=== PATIENT | female | born 1965 | race Caucasian/White ===

== ENCOUNTER 2016-07-23 14:09 | Emergency (ER) | payer OTHER ==
--- NOTE | 2016-07-23 14:26 | ED NURSING NOTES ---
Clinical Report - Nurses [facility] [place] [address] 07/23/2016 14:12 [id number] Triage time 14:19 Jul 23 2016. Acuity: LEVEL 3. Chief Complaint: INJURY TO HEAD. SEPSIS SCREEN: Sepsis Screen. Negative (no infection suspected/documented). HELEN COMA SCORE: [place] Coma Scale: 15- eyes open spontaneously (4); best verbal response- oriented x 4 (5); best motor response- obeys commands (6). --14:25 Cary Silva R.N. 14:19 07/23/16. BP: 154/86 (large adult cuff) taken on the left arm, while sitting. HR: 78. RR: 18 (regular). O2 saturation: 97% on room air. Temp: 97.8 F (oral). Pain level now: 5/10. --14:25 Cary Silva R.N. Weight: 129.7 kg stated. Height/Length: 65 inches Per Patient. BMI: 47.6. --14:24 Cary Silva R.N. Medications High blood pressure medication. --14:21 Cary Silva R.N. Allergies No Known Drug Allergy. --14:20 Cary Silva R.N. History Arrived by private vehicle. Historian: patient. Accompanied by family. This occurred just prior to arrival. Mechanism of injury: a single blow. She has had a headache. No loss of consciousness. No neck pain. 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 PAST MEDICAL HX: Hypertension. Tetanus status: up-to-date. SOCIAL HX: Smoker- current status unknown. No alcohol use or drug use. No infectious disease exposure. ABUSE ASSESSMENT: No report of abuse. --14:25 Cary Silva R.N. PROBLEMS: Hypertension. --14:22 Cary Silva R.N. ADDITIONAL SURGERIES: Adenoidectomy. Carpal Tunnel Surgery. Csection. Tonsillectomy. [place] teech. --14:22 Cary Silva R.N. Interventions ID band on patient. To treatment room. --14:25 Cary Silva R.N. PHYSICAL ASSESSMENT Ambulatory to room. GENERAL / NEURO / PSYCH: Alert. Oriented X 4. Appears in no acute distress. HEENT: Right parietal area: tenderness and swelling. ( Patient tender to touch in area, she will continue to use ice. Skin intact). Pupils equal, round and reactive to light. EOM intact. Ear within normal limits. Voice within normal limits. No nasal injury noted. Mucous membranes are pink. RESPIRATORY: Respirations not labored. CVS: Capillary refill less than 2 seconds. BACK: No neck or back tenderness. ROM normal to the neck and back. SKIN: Skin is warm. --14:26 Cary Silva R.N. NURSING PROGRESS NOTES The plan of care for this patient has been created. Cold pack applied. Head of bed elevated. Reassurance given. Two patient identifiers checked. Call light placed in reach. Side rails up x 1. Bed placed in lowest position. Brakes of bed on. Patient ready for evaluation- chart flagged and ED physician notified. --14:27 Cary Silva R.N. DISPOSITION / DISCHARGE Departure time: 14:30 Jul 23 2016. Condition at departure: unchanged. No learning barriers present. Discharge instructions provided and reviewed with the patient. Reviewed wound care instructions (ice). Patient verbalized understanding. Written instructions provided in Turkmen. The patient was discharged by the nurse practitioner. She was discharged home and accompanied by spouse. She left the Emergency Department ambulatory and via private vehicle. Spouse driving. ( Patient has no further questions). --14:33 Cary Silva R.N. Locked/Released at 07/23/2016 14:34 by Cary Silva R.N.
--- NOTE | 2016-07-23 14:26 | ED NURSING NOTES ---
Clinical Report - Nurses [facility] [place] [address] 07/23/2016 14:12 [id number] TRI[facility] Triage time 14:19 Jul 23 2016. Acuity: LEVEL 3. Chief Complaint: INJURY TO HEAD. SEPSIS SCREEN: Sepsis Screen. Negative (no infection suspected/documented). HELEN COMA SCORE: [place] Coma Scale: 15- eyes open spontaneously (4); best verbal response- oriented x 4 (5); best motor response- obeys commands (6). --14:25 Cary Silva R.N. 14:19 07/23/16. BP: 154/86 (large adult cuff) taken on the left arm, while sitting. HR: 78. RR: 18 (regular). O2 saturation: 97% on room air. Temp: 97.8 F (oral). Pain level now: 5/10. --14:25 Cary Silva R.N. Weight: 129.7 kg stated. Height/Length: 65 inches Per Patient. BMI: 47.6. --14:24 Cary Silva R.N. Medications High blood pressure medication. --14:21 Cary Silva R.N. Allergies No Known Drug Allergy. --14:20 Cary Silva R.N. History Arrived by private vehicle. Historian: patient. Accompanied by family. This occurred just prior to arrival. Mechanism of injury: a single blow. She has had a headache. No loss of consciousness. No neck pain. 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 PAST MEDICAL HX: Hypertension. Tetanus status: up-to-date. SOCIAL HX: Smoker- current status unknown. No alcohol use or drug use. No infectious disease exposure. ABUSE ASSESSMENT: No report of abuse. --14:25 Cary Silva R.N. PROBLEMS: Hypertension. --14:22 Cary Silva R.N. ADDITIONAL SURGERIES: Adenoidectomy. Carpal Tunnel Surgery. Csection. Tonsillectomy. [place] teech. --14:22 Cary Silva R.N. Interventions ID band on patient. To treatment room. --14:25 Cary Silva R.N. PHYSICAL ASSESSMENT Ambulatory to room. GENERAL / NEURO / PSYCH: Alert. Oriented X 4. Appears in no acute distress. HEENT: Right parietal area: tenderness and swelling. ( Patient tender to touch in area, she will continue to use ice. Skin intact). Pupils equal, round and reactive to light. EOM intact. Ear within normal limits. Voice within normal limits. No nasal injury noted. Mucous membranes are pink. RESPIRATORY: Respirations not labored. CVS: Capillary refill less than 2 seconds. BACK: No neck or back tenderness. ROM normal to the neck and back. SKIN: Skin is warm. --14:26 Cary Silva R.N. NURSING PROGRESS NOTES The plan of care for this patient has been created. Cold pack applied. Head of bed elevated. Reassurance given. Two patient identifiers checked. Call light placed in reach. Side rails up x 1. Bed placed in lowest position. Brakes of bed on. Patient ready for evaluation- chart flagged and ED physician notified. --14:27 Cary Silva R.N. DISPOSITION / DISCHARGE Departure time: 14:30 Jul 23 2016. Condition at departure: unchanged. No learning barriers present. Discharge instructions provided and reviewed with the patient. Reviewed wound care instructions (ice). Patient verbalized understanding. Written instructions provided in Faroese. The patient was discharged by the nurse practitioner. She was discharged home and accompanied by spouse. She left the Emergency Department ambulatory and via private vehicle. Spouse driving. ( Patient has no further questions). --14:33 Cary Silva R.N. Locked/Released at 07/23/2016 14:34 by Cary Silva R.N.
--- NOTE | 2016-07-23 14:26 | ED CLINICAL REPORT ---
Clinical Report - Physicians/Mid Levels [facility] [address] [place] [address] 07/23/2016 14:12 Patient: MICHELLE ROMERO Time Seen: 1418; upon arrival, initial patient contact, initial documentation, patient care assumed. Arrived- By private vehicle. Historian- patient and spouse. HISTORY OF PRESENT ILLNESS Chief Complaint: INJURY TO HEAD. Location of injuries- head. The injury occurred just prior to arrival. Occurred at home. The patient sustained multiple light blows (some glass food edison jars fell off shelf and hit me in the head). The patient complains of mild pain. The patient sustained a blow to the head. No neck pain, loss of consciousness or seizure. Not dazed. swelling and pain better now after ice and motrin 600mg. REVIEW OF SYSTEMS No numbness, loss of vision, weakness, difficulty breathing or laceration. All systems otherwise negative, except as recorded above. PAST HISTORY See nurses notes. PROBLEMS: Hypertension. --14:22 Cary Silva R.N. ADDITIONAL SURGERIES: Adenoidectomy. Carpal Tunnel Surgery. Csection. Tonsillectomy. Ben syed. --14:22 Cary Silva R.N. SOCIAL HISTORY Unknown if ever smoked. No alcohol use or drug use. No recent travel. Is a local resident. She lives with spouse. FAMILY HISTORY No significant family medical history. ADDITIONAL NOTES The nursing notes have been reviewed with agreement regarding the chief complaint, HPI, ROS, PMH and patient medications and allergies. PHYSICAL EXAM Vital Signs: 07/23/2016 14:19 BP: 154/86. HR: 78. RR: 18. O2 saturation: 97%. Temp: 97.8 F. Pain level now: 510. Have been reviewed as normal and appear to be correct. Appearance: Alert. No acute distress. Head: Head tender. Swelling of head present. Right parietal area: mild tenderness and swelling of the upper anterior aspect of the right parietal area (very mild swelling, barely noticeable). No erythema, laceration, abrasion, ecchymosis or puncture wound. No foreign body or deformity. Eyes: Pupils equal, round and reactive to light. EOM intact. ENT: No dental injury. Pharynx normal. Neck: Painless ROM. Non-tender. Back: No tenderness. ROM normal. Skin: Skin intact. Skin warm and dry. Normal skin color. Normal skin turgor. Extremities: Normal inspection. Pelvis stable. Extremities atraumatic. No lower extremity edema. Neuro: Oriented X 3. Mood/affect normal. Speech normal. No motor deficit. Normal gait. No sensory deficit. PROGRESS AND PROCEDURES Patient and spouse counseled in person regarding the patient's stable condition and diagnosis. Differential Diagnosis: Other possible considerations: icb, sah, subdural hematoma, concussion, skull fx, contusion, lac. Above considerations are based on history and physical exam. Differential diagnosis was discussed with patient and patient's spouse. Disposition: Discharged home in good and unchanged condition (14:26). Condition: good and stable. CLINICAL IMPRESSION Single contusion to the scalp.No hematoma or skin abrasion. INSTRUCTIONS Apply ice for 20 minutes four times a day for one days until better. Don't apply ice directly to skin. Warnings: HEAD INJURY PRECAUTIONS: An observer must check on the patient frequently for the next 24 hours to confirm that the patient responds as expected, is not confused, has no new weakness or numbness, and has no other problems. GENERAL WARNINGS: Return or contact your physician immediately if your condition worsens or changes unexpectedly, if not improving as expected, or if other problems arise. Specifically return if problem worsens. Follow-up: Follow up with your doctor in about two days as needed. Call for an appointment. Summary of care provided to patient. Understanding of the discharge instructions verbalized by patient. (Electronically signed by Tara Reyes A.R.N.P. 07/23/2016 15:26)
--- NOTE | 2016-07-23 15:27 | ED MAR SUMMARY ---
..... Medication Administration Record [facility] [address] [place], [place] [id number] Patient: MICHELLE ROMERO Visit ID: [id number] 51y, F Weight: 129.7 kg Height/Length: 65 in BMI: 47.6 ALLERGIES: No Known Drug Allergy
--- NOTE | 2016-07-23 15:27 | ED DISCHARGE INSTRUCTIONS ---
Patient: MICHELLE ROMERO General Instructions [facility] VisitID: [id number] [place] [address] 51y, F Registration Date/Time: 07/23/2016 Single contusion to the scalp.No hematoma or skin abrasion. INSTRUCTIONS Apply ice for 20 minutes four times a day for one days until better. Don't apply ice directly to skin. Warnings: HEAD INJURY PRECAUTIONS: An observer must check on the patient frequently for the next 24 hours to confirm that the patient responds as expected, is not confused, has no new weakness or numbness, and has no other problems. GENERAL WARNINGS: Return or contact your physician immediately if your condition worsens or changes unexpectedly, if not improving as expected, or if other problems arise. Specifically return if problem worsens. Follow-up: Follow up with your doctor in about two days as needed. Call for an appointment. Summary of care provided to patient. Understanding of the discharge instructions verbalized by patient. ADDITIONAL INFORMATION Scalp Contusion [No Wake-Up] A scalp contusion is a bruise with swelling and sometimes bleeding under the skin. The swelling should start to go down within two days. Although there is no sign of a serious injury at this time, symptoms may appear later. These could be a sign of a more serious problem (bruising or bleeding in the brain). Therefore, watch for the warning signs below. Home Care: During the next 24 hours someone must stay with you to check for the signs below. It is not necessary to stay awake or be awakened during the night. If you have swelling of the face or scalp, apply an ice pack (ice cubes in a plastic bag, wrapped in a towel) for 20 minutes. Do this every 1-2 hours until the swelling starts to go down. You may use acetaminophen (Tylenol) or ibuprofen (Motrin, Advil) to control pain, unless another pain medicine was prescribed. [ NOTE : If you have chronic liver or kidney disease or ever had a stomach ulcer or GI bleeding, talk with your doctor before using these medicines.] For the next 24 hours: Do not take alcohol, sedatives or medicines that make you sleepy. Do not drive or operate machinery. Avoid strenuous activities. No lifting or straining. If you have had any symptoms of a concussion today (nausea, vomiting, dizziness, confusion, headache, memory loss or if you were knocked out), do not return to sports or any activity that could result in another head injury until all symptoms are gone and you have been cleared by your doctor. A second head injury before fully recovering from the first one can lead to serious brain injury. Follow Up with your doctor if symptoms are not improving after 24 hours, or as directed. [NOTE: Any X-rays or CT scans taken will be reviewed by a radiologist. You will be notified of any new findings that may affect your care.] Get Prompt Medical Attention if any of the following occur: Repeated vomiting Severe or worsening headache or dizziness Unusual drowsiness, or unable to awaken as usual Confusion or change in behavior or speech, memory loss, blurred vision Convulsion (seizure) Increasing scalp or face swelling Redness, warmth or pus from the swollen area Fluid drainage or bleeding from the nose or ears Fever of 100.4F(38C) or higher, or as directed by your healthcare provider Head Injury, No Wake-Up (Adult) You have had a head injury. It does not appear serious at this time. Symptoms of a more serious problem (concussion, bruising, or bleeding in the brain) may appear later. Therefore, watch for the WARNING SIGNS listed below. Home Care: Your healthcare provider will tell you whether its okay to drive. If so, you can drive yourself home. For the next day or so, be careful when driving or using heavy machinery until you are sure you have no delayed symptoms. During the next 24 hours someone must stay with you to check for the signs below. It is not necessary to stay awake or be awakened during the night. If you have swelling of the face or scalp, apply an ice pack (ice cubes in a plastic bag, wrapped in a towel) for 20 minutes. Do this every 1-2 hours until the swelling starts to go down. Do not use aspirin or ibuprofen (Motrin, Advil) after a head injury.You may use acetaminophen (Tylenol)to control pain, unless another pain medicine was prescribed. [NOTE: If you have chronic liver or kidney disease or ever had a stomach ulcer or GI bleeding, talk with your doctor before using these medicines.] For the next 24 hours: Do not take alcohol, sedatives or medicines that make you sleepy. Avoid strenuous activities. No lifting or straining. If you have had any symptoms of a concussion today (nausea, vomiting, dizziness, confusion, headache, memory loss or if you were knocked out), do not return to sports or any activity that could result in another head injury until all symptoms are gone and you have been cleared by your doctor. A second head injury before fully recovering from the first one can lead to serious brain injury. Follow Up with your doctor if symptoms are not improving after 24 hours, or as directed. [NOTE: A radiologist will review any X-rays or CT scans that were taken. We will notify you of any new findings that may affect your care.] Get Prompt Medical Attention if any of the followingWARNING SIGNS occur: Repeated vomiting Severe or worsening headache or dizziness Unusual drowsiness, or unable to awaken as usual Confusion or change in behavior or speech, memory loss, blurred vision Convulsion (seizure) Increasing scalp or face swelling Redness, warmth or pus from the swollen area Fluid drainage or bleeding from the nose or ears You have been given the following additional information: Scalp Contusion, No Wake Up HEAD INJURY, No Wake-Up (Adult) (Electronically signed by Tara Reyes A.R.N.P. 07/23/2016 15:26)
--- NOTE | 2016-07-23 15:27 | ED MED RECONCILIATION SUMMARY ---
Patient: MICHELLE ROMERO Medication Reconciliation Report [facility] VisitID: [id number] [address] [place] [place] [address] 51y, F Registration Date/Time: 07/23/2016 Weight: 129.7 kg Height/Length: 65 in. BMI: 47.6 ALLERGIES: No Known Drug Allergy The patient's Home Medications are listed below: THE FOLLOWING MEDICATIONS NEED TO BE RECONCILED: High blood pressure medication The source(s) of the original Home Medication information: Not obtained. The following Medications were given to the patient in the Emergency Department: None. The following Medications were prescribed to the patient: None.
--- NOTE | 2016-07-23 15:27 | ED MAR SUMMARY ---
..... Medication Administration Record [facility] [address] [place], [place] [id number] Patient: MICHELLE ROMERO Visit ID: [id number] 51y, F Weight: 129.7 kg Height/Length: 65 in BMI: 47.6 ALLERGIES: No Known Drug Allergy
--- NOTE | 2016-07-23 15:27 | ED MED RECONCILIATION SUMMARY ---
Patient: MICHELLE ROMERO Medication Reconciliation Report [facility] VisitID: [id number] [address] [place] [address] 51y, F Registration Date/Time: 07/23/2016 Weight: 129.7 kg Height/Length: 65 in. BMI: 47.6 ALLERGIES: No Known Drug Allergy The patient's Home Medications are listed below: THE FOLLOWING MEDICATIONS NEED TO BE RECONCILED: High blood pressure medication The source(s) of the original Home Medication information: Not obtained. The following Medications were given to the patient in the Emergency Department: None. The following Medications were prescribed to the patient: None.
== END 2016-07-23 14:30 | disposition home or self-care (01) ==
LOC: ED SRH 14:09
DX: S00.03XA Contusion of scalp, initial encounter (principal); W20.8XXA Other cause of strike by thrown, projected or falling object, initial encounter; Y92.009 Unspecified place in unspecified non-institutional (private) residence as the place of occurrence of the external cause; Y99.8 Other external cause status; I10 Essential (primary) hypertension; Z79.899 Other long term (current) drug therapy

== ENCOUNTER 2016-08-28 00:26 | Emergency (ER) | payer OTHER ==
--- NOTE | 2016-08-28 02:04 | ED NURSING NOTES ---
Clinical Report - Nurses [facility] [address] [place] [place] [address] 08/28/2016 0:27 Patient: MICHELLE ROMERO TRIAGE Triage time 00:36 Aug 28 2016. Chief Complaint: (Ingrown toenail). SEPSIS SCREEN: Sepsis Screen: negative. Negative (no infection suspected/documented). HELEN COMA SCORE: [place] Coma Scale: 15- eyes open spontaneously (4); best verbal response- oriented x 4 (5); best motor response- obeys commands (6). --00:40 Becky Bravo 00:36 08/28/16. BP: 164/73. HR: 70. RR: 18. O2 saturation: 99% on room air. Temp: 97.4 F (oral). Pain level now: 12/28. --00:40 Becky Bravo. Weight: 136 kg stated. Height/Length: 65 inches Per Patient. BMI: 50. --00:38 Becky Bravo. Medications None. --00:37 Becky Bravo. Allergies Codeine. --00:39 Becky Bravo Sulfites. --00:39 Becky Bravo. Medication/allergy information source: the patient. --00:40 Becky Bravo. History Arrived by private vehicle. Historian: patient. Accompanied by family. Primary physician ([facility] silas melton). This started just prior to arrival. ( Patient reports she noticed redness and pain on her right big toe. Patient reports that it has gotten worse in two hours.). 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 PAST MEDICAL HX: Immunizations: up-to-date. Last normal menstrual period- August 14. SOCIAL HX: Never smoker. No alcohol use or drug use. ABUSE ASSESSMENT: No report of abuse. FALL RISK ASSESSMENT: Fall risk assessment completed. No fall risk identified. NUTRITIONAL RISK ASSESSMENT: The nutritional risk assessment revealed no deficiencies. FUNCTIONAL ASSESSMENT: Functional assessment: no impairments noted. LEARNING NEEDS ASSESSMENT: The learning needs assessment revealed no barriers. SKIN INTEGRITY ASSESSMENT: Skin integrity risk assessment completed. No skin integrity risk identified. --00:40 Becky Bravo. PROBLEMS: Contusion. Hypertension. --00:40 Becky Bravo. ADDITIONAL SURGERIES: Adenoidectomy. Carpal Tunnel Surgery. Csection. Tonsillectomy. [place] teech. --00:40 Becky Bravo. Interventions ID band on patient. To treatment room. --00:40 Becky Bravo. PHYSICAL ASSESSMENT GENERAL / NEURO / PSYCH: Alert. Oriented X 4. Appears in no acute distress. HEENT: Pupils equal, round and reactive to light. No facial asymmetry noted. Mucous membranes are pink. RESPIRATORY: Respirations not labored. CVS: Normal sinus rhythm noted. GI / : Abdomen soft and nontender. EXTREMITIES: ( Right big toe red, warm to touch and moderately swollen). SKIN: Skin is warm and dry. --00:41 Becky Bravo. NURSING PROGRESS NOTES Warming measures: blanket applied. Reassurance given to the patient. Two patient identifiers checked. Call light placed in reach. Side rails up x 1. Bed placed in lowest position. Brakes of bed on. Patient ready for evaluation- chart flagged and ED physician notified. --00:41 Becky Bravo 01:35 08/28/16. ( Provider at bedside, toe nail cut back with use of lidocaine. Patient tolerated well.). --02:05 Becky Bravo. DISPOSITION / DISCHARGE Condition at departure: stable. The goals identified in the patient's plan of care were met. FALL RISK ASSESSMENT: Fall risk assessment completed. No fall risk identified. --02:03 Becky Bravo 02:03 08/28/16. BP: deferred. HR: 66. RR: 20. O2 saturation: 97% on room air. Temp: 97.9 F (oral). Pain level now: 10. Additional comments: Patient refused BP , states it hurts too bad . --02:03 Becky Bravo 02:10 08/28/16. No learning barriers present. Discharge instructions provided and reviewed with the patient and family. Reviewed warnings (Do not drive while taking sedative medications). Reviewed medication(s) side effects, precautions, dosing and course information. Prescription(s) given to the patient. Reviewed referral to a marker assembler. Patient verbalized understanding. Written instructions provided in Nepali. ( Follow up with Podiatry. Keep affected toenail clean and dry. Epsom salt and warm water soaks may be helpful. Elevate affected extremity. Avoid tight fitting shoes. Patient verbalized understanding and had no additional questions at this time.). The patient was discharged by the physician. She was discharged home and accompanied by family. She left the Emergency Department ambulatory and via private vehicle. Family member driving. --02:29 Becky Bravo. Locked/Released at 08/28/2016 2:30 by Becky Bravo,
--- NOTE | 2016-08-28 02:04 | ED CLINICAL REPORT ---
Clinical Report - Physicians/Mid Levels [facility] [address] [place] [address] 08/28/2016 0:27 Patient: MICHELLE ROMERO *This is a preliminary document and is subject to change Time Seen: 00:35; initial patient contact. PROGRESS AND PROCEDURES Digital Nerve Block- Toe: Time: 02:03. Per protocol, time-out completed immediately before the procedure. Digital nerve block performed on the right great toe. Dorsal approach utilized. Landmarks identified. Skin prepped. Total volume of 2 mL 2% Lidocaine infiltrated via two punctures using a 27-gauge needle. Patient cooperative during procedure. No complications encountered. Excellent anesthesia achieved. CLINICAL IMPRESSION Paronychia right great toe. Ingrown toenail right great toe. INSTRUCTIONS Prescription Medications: Hydrocodone/APAP 5mg / 325mg: take 1 orally every 6 hours as needed for pain. Dispense fifteen (15). No refill. Augmentin 875 mg: take 1 tablet orally every 12 hours for 7 days. No refill. Substitution is permissible. Follow-up with: Elias Francois DPM, Podiatry, , [address], [place], [address] Follow up in about two days. Call for an appointment. [address]
--- NOTE | 2016-08-28 02:04 | ED NURSING NOTES ---
Clinical Report - Nurses [facility] [place] [address] 08/28/2016 0:27 Patient: MICHELLE ROMERO TRIAGE Triage time 00:36 Aug 28 2016. Chief Complaint: (Ingrown toenail). SEPSIS SCREEN: Sepsis Screen: negative. Negative (no infection suspected/documented). HELEN COMA SCORE: Hachita Coma Scale: 15- eyes open spontaneously (4); best verbal response- oriented x 4 (5); best motor response- obeys commands (6). --00:40 Becky Bravo 00:36 08/28/16. BP: 164/73. HR: 70. RR: 18. O2 saturation: 99% on room air. Temp: 97.4 F (oral). Pain level now: 12/28. --00:40 Becky Bravo. Weight: 136 kg stated. Height/Length: 65 inches Per Patient. BMI: 50. --00:38 Becky Bravo. Medications None. --00:37 Becky Bravo. Allergies Codeine. --00:39 Becky Bravo Sulfites. --00:39 Becky Bravo. Medication/allergy information source: the patient. --00:40 Becky Bravo. History Arrived by private vehicle. Historian: patient. Accompanied by family. Primary physician ([facility] silas melton). This started just prior to arrival. ( Patient reports she noticed redness and pain on her right big toe. Patient reports that it has gotten worse in two hours.). Treatment TOWEL SEWER: None. PAST MEDICAL HX: Immunizations: up-to-date. Last normal menstrual period- August 14. SOCIAL HX: Never smoker. No alcohol use or drug use. ABUSE ASSESSMENT: No report of abuse. FALL RISK ASSESSMENT: Fall risk assessment completed. No fall risk identified. NUTRITIONAL RISK ASSESSMENT: The nutritional risk assessment revealed no deficiencies. FUNCTIONAL ASSESSMENT: Functional assessment: no impairments noted. LEARNING NEEDS ASSESSMENT: The learning needs assessment revealed no barriers. SKIN INTEGRITY ASSESSMENT: Skin integrity risk assessment completed. No skin integrity risk identified. --00:40 Becky Bravo. PROBLEMS: Contusion. Hypertension. --00:40 Becky Bravo. ADDITIONAL SURGERIES: Adenoidectomy. Carpal Tunnel Surgery. Csection. Tonsillectomy. Stanley teech. --00:40 Becky Bravo. Interventions ID band on patient. To treatment room. --00:40 Becky Bravo. PHYSICAL ASSESSMENT GENERAL / NEURO / PSYCH: Alert. Oriented X 4. Appears in no acute distress. HEENT: Pupils equal, round and reactive to light. No facial asymmetry noted. Mucous membranes are pink. RESPIRATORY: Respirations not labored. CVS: Normal sinus rhythm noted. GI / : Abdomen soft and nontender. EXTREMITIES: ( Right big toe red, warm to touch and moderately swollen). SKIN: Skin is warm and dry. --00:41 Becky Bravo. NURSING PROGRESS NOTES Warming measures: blanket applied. Reassurance given to the patient. Two patient identifiers checked. Call light placed in reach. Side rails up x 1. Bed placed in lowest position. Brakes of bed on. Patient ready for evaluation- chart flagged and ED physician notified. --00:41 Becky Bravo 01:35 08/28/16. ( Provider at bedside, toe nail cut back with use of lidocaine. Patient tolerated well.). --02:05 Becky Bravo. DISPOSITION / DISCHARGE Condition at departure: stable. The goals identified in the patient's plan of care were met. FALL RISK ASSESSMENT: Fall risk assessment completed. No fall risk identified. --02:03 Becky Bravo 02:03 08/28/16. BP: deferred. HR: 66. RR: 20. O2 saturation: 97% on room air. Temp: 97.9 F (oral). Pain level now: 10. Additional comments: Patient refused BP , states it hurts too bad . --02:03 Becky Bravo 02:10 08/28/16. No learning barriers present. Discharge instructions provided and reviewed with the patient and family. Reviewed warnings (Do not drive while taking sedative medications). Reviewed medication(s) side effects, precautions, dosing and course information. Prescription(s) given to the patient. Reviewed referral to a layout artist. Patient verbalized understanding. Written instructions provided in French. ( Follow up with Podiatry. Keep affected toenail clean and dry. Epsom salt and warm water soaks may be helpful. Elevate affected extremity. Avoid tight fitting shoes. Patient verbalized understanding and had no additional questions at this time.). The patient was discharged by the physician. She was discharged home and accompanied by family. She left the Emergency Department ambulatory and via private vehicle. Family member driving. --02:29 Becky Bravo. Locked/Released at 08/28/2016 2:30 by Becky Bravo,
--- NOTE | 2016-08-28 02:04 | ED CLINICAL REPORT ---
Clinical Report - Physicians/Mid Levels [facility] [address] [place] [address] 08/28/2016 0:27 Patient: MICHELLE ROMERO *This is a preliminary document and is subject to change Time Seen: 00:35; initial patient contact. PROGRESS AND PROCEDURES Digital Nerve Block- Toe: Time: 02:03. Per protocol, time-out completed immediately before the procedure. Digital nerve block performed on the right great toe. Dorsal approach utilized. Landmarks identified. Skin prepped. Total volume of 2 mL 2% Lidocaine infiltrated via two punctures using a 27-gauge needle. Patient cooperative during procedure. No complications encountered. Excellent anesthesia achieved. CLINICAL IMPRESSION Paronychia right great toe. Ingrown toenail right great toe. INSTRUCTIONS Prescription Medications: Hydrocodone/APAP 5mg / 325mg: take 1 orally every 6 hours as needed for pain. Dispense fifteen (15). No refill. Augmentin 875 mg: take 1 tablet orally every 12 hours for 7 days. No refill. Substitution is permissible. Follow-up with: Elias Francois DPM, Podiatry, , [address], [place], [address] Follow up in about two days. Call for an appointment. [address].
--- NOTE | 2016-08-28 09:06 | ED MAR SUMMARY ---
..... Medication Administration Record [facility] [address] [place], [place] [id number] Patient: MICHELLE ROMERO Visit ID: [id number] 51y, F Weight: 136.0 kg Height/Length: 65 in BMI: 50 ALLERGIES: Sulfites, Codeine
--- NOTE | 2016-08-28 09:06 | ED DISCHARGE INSTRUCTIONS ---
Patient: MICHELLE ROMERO General Instructions [facility] VisitID: [id number] [address] [place] [address] 51y, F Registration Date/Time: 08/28/2016 Paronychia right great toe. Ingrown toenail right great toe. INSTRUCTIONS Prescription Medications: Hydrocodone/APAP 5mg / 325mg: take 1 orally every 6 hours as needed for pain. Dispense fifteen (15). No refill. Augmentin 875 mg: take 1 tablet orally every 12 hours for 7 days. No refill. Substitution is permissible. Follow-up with: Elias Francois DPM, Podiatry, , [address], [place], [address] Follow up in about two days. Call for an appointment. ADDITIONAL INFORMATION Paronychia, Finger Or Toe Paronychia is an infection alongside the fingernail or toenail. It usually occurs from an opening in the cuticle or an ingrown toenail which lets bacteria under the skin. If there is pus present, the infection will need to be drained. If the infection is early, antibiotic treatment alone may be all that you need. Healing will take about 12 weeks. Home care The following guidelines will help you care for your wound at home: Twice a day for the first three days, clean and soak the toe or finger as follows: Soak your foot or hand in a tub of warm water for five minutes. Or, hold your toe or finger under a faucet of warm running water for five minutes. Clean any remaining crust away with soap and water using a cotton-tipped applicator. Apply antibiotic ointment to the infected area. Change the dressing daily or whenever it becomes soiled. If you were prescribed antibiotics, take them as directed until they are all gone. If your infection is on a toe, wear comfortable shoes with a lot of toe room, or open-toe sandals, while your toe is healing. You may use acetaminophen or ibuprofen to control pain, unless another medicine was prescribed.If you have chronic liver or kidney disease or ever had a stomach ulcer or GI bleeding, talk with your doctor before using these medicines. Follow-up care Follow up with your doctor or this facility as explained by our staff. When to seek medical care Get prompt medical attention if any of the following occur: Increasing redness, pain or swelling of the finger or toe Red streaks in the skin leading away from the wound Pus or fluid drainage Fever of 100.4F (38C) or higher, or as directed by your health care provider Ingrown Toenail, Excised An ingrown toenail occurs when the nail grows sideways into the skin alongside the nail. This can cause pain, especially when wearing tight shoes. It can also lead to an infection with redness and swelling. The side of the nail will need to be removed in order to stop the pain and release any infection present. If there is a lot of redness and swelling, then an antibiotic may also be used. The redness and pain should begin to go away within 48 hours. It will take about two weeks for the exposed nail bed to become dry and all of the swelling to go down. If only the side of the nail was removed it will begin to grow back in a few months. To prevent recurrence, that side of nail bed may be treated with a strong chemical to prevent the nail from regrowing ("ablation"). Home care The following guidelines will help you care for your toe at home: 1) Twice a day for the first three days, clean and soak the toe as follows: Soak your foot in a tub of warm water for five minutes. Or, hold your toe under a faucet of warm running water for five minutes. Clean any remaining crust away with soap and water using a cotton-tipped applicator. Apply antibiotic ointment to the infected area. Cover with a bandage until the exposed nail bed is dry and there is no more drainage. 2) Change the dressing daily, or whenever it becomes wet or dirty. 3) If you were prescribed antibiotics, take them as directed until they are all gone. 4) Wear comfortable shoes with a lot of toe room, or open-toe sandals, while your toe is healing. 5) You may use acetaminophen or ibuprofen to control pain, unless another medicine was prescribed.If you have chronic liver or kidney disease or ever had a stomach ulcer or GI bleeding, talk with your doctor before using these medicines. Prevention To prevent ingrown toenails: 1) Wear shoes that fit well. Avoid shoes that pinch the toes together. 2) When you trim your toenails, do not cut them too short. Cut straight across at the top and do not round the edges. 3) Do not use a sharp object to clean under your nail since this might cause an infection. 4) At first signs of a recurrence, insert a small piece of cotton under that side of the nail to help it grow out straight. Follow-up care Follow up with your doctor or this facility as advised by our staff. If the ingrown toenail recurs, follow up with a it web development consultant for nail bed ablation. When to seek medical care Get prompt medical attention if any of the following occur: Increasing redness, pain or swelling of the toe Red streaks in the skin leading away from the wound Continued pus or fluid drainage for more than 24 hours Fever of 100.4 F (38 C) or higher, or as directed by your health care provider Ingrown Toenail,Infected (Abx, No Excision) An ingrown toenail occurs when the nail grows sideways into the skin alongside the nail. This can cause pain, especially when wearing shoes. It can also lead to an infection with redness, and swelling and sometimes pus. Because your infection is mild, it will be treated with antibiotics alone. If infection or pain continues with antibiotic treatment, it may be necessary to remove a part of the nail and drain any pus present. Redness and pain should begin to go away within 48 hours. It will take about 12 weeks for all of the swelling to go away. Home care The following guidelines will help you care for your ingrown toenail at home: 1) Twice a day for the first three days, clean and soak the toe as follows: Soak your foot in a tub of warm water for five minutes. Or, hold your toe under a faucet of warm running water for five minutes. Clean any remaining crust away with soap and water using a cotton-tipped applicator. Apply antibiotic ointment to the infected area. 2) Change the dressing daily or whenever it becomes wet or dirty. 3) If you were prescribed antibiotics, take them as directed until they are all gone. 4) Wear comfortable shoes with a lot of toe room, or open-toe sandals, while your toe is healing. 5) You may use acetaminophen or ibuprofen to control pain, unless another medicine was prescribed.If you have chronic liver or kidney disease or ever had a stomach ulcer or GI bleeding, talk with your doctor before using these medicines. Prevention To prevent ingrown toenails: 1) Wear shoes that fit well. Avoid shoes that pinch the toes together. 2) When you trim your toenails, do not cut them too short. Cut straight across at the top and do not round the edges. 3) Do not use a sharp object to clean under your nail since this might cause an infection. 4) At first signs of a recurrence, insert a small piece of cotton under that side of the nail to help it grow out straight. Follow-up care Follow up with your doctor or this facility as advised by our staff. When to seek medical care Get prompt medical attention if any of the following occur: Increasing redness, pain or swelling of the toe Red streaks in the skin leading away from the wound Pus or fluid drainage Fever of 100.4 F (38 C) or higher, or as directed by your health care provider Hydrocodone Bitartrate, Acetaminophen Oral tablet What is this medicine? ACETAMINOPHEN; HYDROCODONE (a set a ISADORA riley fen; anastacia droe KOE done) is a pain reliever. It is used to treat mild to moderate pain. How should I use this medicine? Take this medicine by mouth. Swallow it with a full glass of water. Follow the directions on the prescription label. If the medicine upsets your stomach, take the medicine with food or milk. Do not take more than you are told to take. Talk to your gluer machine operator regarding the use of this medicine in children. This medicine is not approved for use in children. What side effects may I notice from receiving this medicine? Side effects that you should report to your doctor or health care attendant as soon as possible: allergic reactions like skin rash, itching or hives, swelling of the face, lips, or tongue breathing problems confusion feeling faint or lightheaded, falls stomach pain yellowing of the eyes or skin Side effects that usually do not require medical attention (report to your doctor or health care attendant if they continue or are bothersome): nausea, vomiting stomach upset What may interact with this medicine? alcohol antihistamines isoniazid medicines for depression, anxiety, or psychotic disturbances medicines for sleep muscle relaxants naltrexone narcotic medicines (opiates) for pain phenobarbital ritonavir tramadol What if I miss a dose? If you miss a dose, take it as soon as you can. If it is almost time for your next dose, take only that dose. Do not take double or extra doses. Where should I keep my medicine? Keep out of the reach of children. This medicine can be abused. Keep your medicine in a safe place to protect it from theft. Do not share this medicine with anyone. Selling or giving away this medicine is dangerous and against the law. Store at room temperature between 15 and 30 degrees C (59 and 86 degrees F). Protect from light. Keep container tightly closed. Throw away any unused medicine after the expiration date. Discard unused medicine and used packaging carefully. Pets and children can be harmed if they find used or lost packages. What should I tell my health care provider before I take this medicine? They need to know if you have any of these conditions: brain tumor Crohn's disease, inflammatory bowel disease, or ulcerative colitis drink more than 3 alcohol-containing drinks per day drug abuse or addiction head injury heart or circulation problems kidney disease or problems going to the bathroom liver disease lung disease, asthma, or breathing problems an unusual or allergic reaction to acetaminophen, hydrocodone, other opioid analgesics, other medicines, foods, dyes, or preservatives or trying to get breast-feeding What should I watch for while using this medicine? Tell your doctor or health care attendant if your pain does not go away, if it gets worse, or if you have new or a different type of pain. You may develop tolerance to the medicine. Tolerance means that you will need a higher dose of the medicine for pain relief. Tolerance is normal and is expected if you take the medicine for a long time. Do not suddenly stop taking your medicine because you may develop a severe reaction. Your body becomes used to the medicine. This does NOT mean you are addicted. Addiction is a behavior related to getting and using a drug for a non-medical reason. If you have pain, you have a medical reason to take pain medicine. Your doctor will tell you how much medicine to take. If your doctor wants you to stop the medicine, the dose will be slowly lowered over time to avoid any side effects. You may get drowsy or dizzy when you first start taking the medicine or change doses. Do not drive, use machinery, or do anything that may be dangerous until you know how the medicine affects you. Stand or sit up slowly. There are different types of narcotic medicines (opiates) for pain. If you take more than one type at the same time, you may have more side effects. Give your health care provider a list of all medicines you use. Your doctor will tell you how much medicine to take. Do not take more medicine than directed. Call emergency for help if you have problems breathing. The medicine will cause constipation. Try to have a bowel movement at least every 2 to 3 days. If you do not have a bowel movement for 3 days, call your doctor or health care attendant. Too much acetaminophen can be very dangerous. Do not take Tylenol (acetaminophen) or medicines that contain acetaminophen with this medicine. Many non-prescription medicines contain acetaminophen. Always read the labels carefully. Amoxicillin Trihydrate, Clavulanate Potassium Oral tablet What is this medicine? AMOXICILLIN; CLAVULANIC ACID (a mox i LOWELL in; ISA matos ic id) is a penicillin antibiotic. It is used to treat certain kinds of bacterial infections. It will not work for colds, flu, or other viral infections. How should I use this medicine? Take this medicine by mouth with a full glass of water. Follow the directions on the prescription label. Take at the start of a meal. Do not crush or chew. If the tablet has a score line, you may cut it in half at the score line for easier swallowing. Take your medicine at regular intervals. Do not take your medicine more often than directed. Take all of your medicine as directed even if you think you are better. Do not skip doses or stop your medicine early. Talk to your gluer machine operator regarding the use of this medicine in children. Special care may be needed. What side effects may I notice from receiving this medicine? Side effects that you should report to your doctor or health care attendant as soon as possible: allergic reactions like skin rash, itching or hives, swelling of the face, lips, or tongue breathing problems dark urine fever or chills, sore throat redness, blistering, peeling or loosening of the skin, including inside the mouth seizures trouble passing urine or change in the amount of urine unusual bleeding, bruising unusually weak or tired white patches or sores in the mouth or throat Side effects that usually do not require medical attention (report to your doctor or health care attendant if they continue or are bothersome): diarrhea dizziness headache nausea, vomiting stomach upset vaginal or anal irritation What may interact with this medicine? allopurinol anticoagulants control pills methotrexate probenecid What if I miss a dose? If you miss a dose, take it as soon as you can. If it is almost time for your next dose, take only that dose. Do not take double or extra doses. Where should I keep my medicine? Keep out of the reach of children. Store at room temperature below 25 degrees C (77 degrees F). Keep container tightly closed. Throw away any unused medicine after the expiration date. What should I tell my health care provider before I take this medicine? They need to know if you have any of these conditions: bowel disease, like colitis kidney disease liver disease mononucleosis an unusual or allergic reaction to amoxicillin, penicillin, cephalosporin, other antibiotics, clavulanic acid, other medicines, foods, dyes, or preservatives or trying to get breast-feeding What should I watch for while using this medicine? Tell your doctor or health care attendant if your symptoms do not improve. Do not treat diarrhea with over the counter products. Contact your doctor if you have diarrhea that lasts more than 2 days or if it is severe and watery. If you have diabetes, you may get a false-positive result for sugar in your urine. Check with your doctor or health care attendant. control pills may not work properly while you are taking this medicine. Talk to your doctor about using an extra method of control. You have been given the following additional information: Paronychia Ingrown Toenail, Excised Ingrown Toenail, Infected (Abx Only) Hydrocodone Bitartrate, Acetaminophen Oral tablet Amoxicillin Trihydrate, Clavulanate Potassium Oral tablet (Electronically signed by Piter Orr Dr. 08/28/2016 9:05)
--- NOTE | 2016-08-28 09:06 | ED MAR SUMMARY ---
..... Medication Administration Record [facility] [address] [place], [place] [id number] Patient: MICHELLE ROMERO Visit ID: [id number] 51y, F Weight: 136.0 kg Height/Length: 65 in BMI: 50 ALLERGIES: Sulfites, Codeine
--- NOTE | 2016-08-28 09:06 | ED MED RECONCILIATION SUMMARY ---
Patient: MICHELLE ROMERO Medication Reconciliation Report [facility] VisitID: [id number] [address] [place] [address] 51y, F Registration Date/Time: 08/28/2016 Weight: 136.0 kg Height/Length: 65 in. BMI: 50.0 ALLERGIES: Codeine, Sulfites The patient's Home Medications are listed below: NONE. The source(s) of the original Home Medication information: patient The following Medications were given to the patient in the Emergency Department: None. The following Medications were prescribed to the patient: Hydrocodone/APAP 5mg / 325mg: take 1 orally every 6 hours as needed for pain. Dispense fifteen (15). No refill. -- Piter Orr Dr. Augmentin 875 mg: take 1 tablet orally every 12 hours for 7 days. No refill. Substitution is permissible. -- Piter Orr Dr.
--- NOTE | 2016-08-28 09:06 | ED MED RECONCILIATION SUMMARY ---
Patient: MICHELLE ROMERO Medication Reconciliation Report [facility] VisitID: [id number] [address] [place] [address] 51y, F Registration Date/Time: 08/28/2016 Weight: 136.0 kg Height/Length: 65 in. BMI: 50.0 ALLERGIES: Codeine, Sulfites The patient's Home Medications are listed below: NONE. The source(s) of the original Home Medication information: patient The following Medications were given to the patient in the Emergency Department: None. The following Medications were prescribed to the patient: Hydrocodone/APAP 5mg / 325mg: take 1 orally every 6 hours as needed for pain. Dispense fifteen (15). No refill. -- Piter Orr Dr. Augmentin 875 mg: take 1 tablet orally every 12 hours for 7 days. No refill. Substitution is permissible. -- Piter Orr Dr.
--- NOTE | 2016-08-28 09:06 | ED DISCHARGE INSTRUCTIONS ---
Patient: MICHELLE ROMERO General Instructions [facility] VisitID: [id number] [address] [place] [address] 51y, F Registration Date/Time: 08/28/2016 Paronychia right great toe. Ingrown toenail right great toe. INSTRUCTIONS Prescription Medications: Hydrocodone/APAP 5mg / 325mg: take 1 orally every 6 hours as needed for pain. Dispense fifteen (15). No refill. Augmentin 875 mg: take 1 tablet orally every 12 hours for 7 days. No refill. Substitution is permissible. Follow-up with: Elias Francois DPM, Podiatry, , [address], [place], [address] Follow up in about two days. Call for an appointment. ADDITIONAL INFORMATION Paronychia, Finger Or Toe Paronychia is an infection alongside the fingernail or toenail. It usually occurs from an opening in the cuticle or an ingrown toenail which lets bacteria under the skin. If there is pus present, the infection will need to be drained. If the infection is early, antibiotic treatment alone may be all that you need. Healing will take about 12 weeks. Home care The following guidelines will help you care for your wound at home: Twice a day for the first three days, clean and soak the toe or finger as follows: Soak your foot or hand in a tub of warm water for five minutes. Or, hold your toe or finger under a faucet of warm running water for five minutes. Clean any remaining crust away with soap and water using a cotton-tipped applicator. Apply antibiotic ointment to the infected area. Change the dressing daily or whenever it becomes soiled. If you were prescribed antibiotics, take them as directed until they are all gone. If your infection is on a toe, wear comfortable shoes with a lot of toe room, or open-toe sandals, while your toe is healing. You may use acetaminophen or ibuprofen to control pain, unless another medicine was prescribed.If you have chronic liver or kidney disease or ever had a stomach ulcer or GI bleeding, talk with your doctor before using these medicines. Follow-up care Follow up with your doctor or this facility as explained by our staff. When to seek medical care Get prompt medical attention if any of the following occur: Increasing redness, pain or swelling of the finger or toe Red streaks in the skin leading away from the wound Pus or fluid drainage Fever of 100.4F (38C) or higher, or as directed by your health care provider Ingrown Toenail, Excised An ingrown toenail occurs when the nail grows sideways into the skin alongside the nail. This can cause pain, especially when wearing tight shoes. It can also lead to an infection with redness and swelling. The side of the nail will need to be removed in order to stop the pain and release any infection present. If there is a lot of redness and swelling, then an antibiotic may also be used. The redness and pain should begin to go away within 48 hours. It will take about two weeks for the exposed nail bed to become dry and all of the swelling to go down. If only the side of the nail was removed it will begin to grow back in a few months. To prevent recurrence, that side of nail bed may be treated with a strong chemical to prevent the nail from regrowing ("ablation"). Home care The following guidelines will help you care for your toe at home: 1) Twice a day for the first three days, clean and soak the toe as follows: Soak your foot in a tub of warm water for five minutes. Or, hold your toe under a faucet of warm running water for five minutes. Clean any remaining crust away with soap and water using a cotton-tipped applicator. Apply antibiotic ointment to the infected area. Cover with a bandage until the exposed nail bed is dry and there is no more drainage. 2) Change the dressing daily, or whenever it becomes wet or dirty. 3) If you were prescribed antibiotics, take them as directed until they are all gone. 4) Wear comfortable shoes with a lot of toe room, or open-toe sandals, while your toe is healing. 5) You may use acetaminophen or ibuprofen to control pain, unless another medicine was prescribed.If you have chronic liver or kidney disease or ever had a stomach ulcer or GI bleeding, talk with your doctor before using these medicines. Prevention To prevent ingrown toenails: 1) Wear shoes that fit well. Avoid shoes that pinch the toes together. 2) When you trim your toenails, do not cut them too short. Cut straight across at the top and do not round the edges. 3) Do not use a sharp object to clean under your nail since this might cause an infection. 4) At first signs of a recurrence, insert a small piece of cotton under that side of the nail to help it grow out straight. Follow-up care Follow up with your doctor or this facility as advised by our staff. If the ingrown toenail recurs, follow up with a primer waterproofing machine operator for nail bed ablation. When to seek medical care Get prompt medical attention if any of the following occur: Increasing redness, pain or swelling of the toe Red streaks in the skin leading away from the wound Continued pus or fluid drainage for more than 24 hours Fever of 100.4 F (38 C) or higher, or as directed by your health care provider Ingrown Toenail,Infected (Abx, No Excision) An ingrown toenail occurs when the nail grows sideways into the skin alongside the nail. This can cause pain, especially when wearing shoes. It can also lead to an infection with redness, and swelling and sometimes pus. Because your infection is mild, it will be treated with antibiotics alone. If infection or pain continues with antibiotic treatment, it may be necessary to remove a part of the nail and drain any pus present. Redness and pain should begin to go away within 48 hours. It will take about 12 weeks for all of the swelling to go away. Home care The following guidelines will help you care for your ingrown toenail at home: 1) Twice a day for the first three days, clean and soak the toe as follows: Soak your foot in a tub of warm water for five minutes. Or, hold your toe under a faucet of warm running water for five minutes. Clean any remaining crust away with soap and water using a cotton-tipped applicator. Apply antibiotic ointment to the infected area. 2) Change the dressing daily or whenever it becomes wet or dirty. 3) If you were prescribed antibiotics, take them as directed until they are all gone. 4) Wear comfortable shoes with a lot of toe room, or open-toe sandals, while your toe is healing. 5) You may use acetaminophen or ibuprofen to control pain, unless another medicine was prescribed.If you have chronic liver or kidney disease or ever had a stomach ulcer or GI bleeding, talk with your doctor before using these medicines. Prevention To prevent ingrown toenails: 1) Wear shoes that fit well. Avoid shoes that pinch the toes together. 2) When you trim your toenails, do not cut them too short. Cut straight across at the top and do not round the edges. 3) Do not use a sharp object to clean under your nail since this might cause an infection. 4) At first signs of a recurrence, insert a small piece of cotton under that side of the nail to help it grow out straight. Follow-up care Follow up with your doctor or this facility as advised by our staff. When to seek medical care Get prompt medical attention if any of the following occur: Increasing redness, pain or swelling of the toe Red streaks in the skin leading away from the wound Pus or fluid drainage Fever of 100.4 F (38 C) or higher, or as directed by your health care provider Hydrocodone Bitartrate, Acetaminophen Oral tablet What is this medicine? ACETAMINOPHEN; HYDROCODONE (a set a ISADORA riley fen; anastacia droe KOE done) is a pain reliever. It is used to treat mild to moderate pain. How should I use this medicine? Take this medicine by mouth. Swallow it with a full glass of water. Follow the directions on the prescription label. If the medicine upsets your stomach, take the medicine with food or milk. Do not take more than you are told to take. Talk to your launchman regarding the use of this medicine in children. This medicine is not approved for use in children. What side effects may I notice from receiving this medicine? Side effects that you should report to your doctor or health home visit field care manager as soon as possible: allergic reactions like skin rash, itching or hives, swelling of the face, lips, or tongue breathing problems confusion feeling faint or lightheaded, falls stomach pain yellowing of the eyes or skin Side effects that usually do not require medical attention (report to your doctor or health home visit field care manager if they continue or are bothersome): nausea, vomiting stomach upset What may interact with this medicine? alcohol antihistamines isoniazid medicines for depression, anxiety, or psychotic disturbances medicines for sleep muscle relaxants naltrexone narcotic medicines (opiates) for pain phenobarbital ritonavir tramadol What if I miss a dose? If you miss a dose, take it as soon as you can. If it is almost time for your next dose, take only that dose. Do not take double or extra doses. Where should I keep my medicine? Keep out of the reach of children. This medicine can be abused. Keep your medicine in a safe place to protect it from theft. Do not share this medicine with anyone. Selling or giving away this medicine is dangerous and against the law. Store at room temperature between 15 and 30 degrees C (59 and 86 degrees F). Protect from light. Keep container tightly closed. Throw away any unused medicine after the expiration date. Discard unused medicine and used packaging carefully. Pets and children can be harmed if they find used or lost packages. What should I tell my health care provider before I take this medicine? They need to know if you have any of these conditions: brain tumor Crohn's disease, inflammatory bowel disease, or ulcerative colitis drink more than 3 alcohol-containing drinks per day drug abuse or addiction head injury heart or circulation problems kidney disease or problems going to the bathroom liver disease lung disease, asthma, or breathing problems an unusual or allergic reaction to acetaminophen, hydrocodone, other opioid analgesics, other medicines, foods, dyes, or preservatives or trying to get breast-feeding What should I watch for while using this medicine? Tell your doctor or health home visit field care manager if your pain does not go away, if it gets worse, or if you have new or a different type of pain. You may develop tolerance to the medicine. Tolerance means that you will need a higher dose of the medicine for pain relief. Tolerance is normal and is expected if you take the medicine for a long time. Do not suddenly stop taking your medicine because you may develop a severe reaction. Your body becomes used to the medicine. This does NOT mean you are addicted. Addiction is a behavior related to getting and using a drug for a non-medical reason. If you have pain, you have a medical reason to take pain medicine. Your doctor will tell you how much medicine to take. If your doctor wants you to stop the medicine, the dose will be slowly lowered over time to avoid any side effects. You may get drowsy or dizzy when you first start taking the medicine or change doses. Do not drive, use machinery, or do anything that may be dangerous until you know how the medicine affects you. Stand or sit up slowly. There are different types of narcotic medicines (opiates) for pain. If you take more than one type at the same time, you may have more side effects. Give your health care provider a list of all medicines you use. Your doctor will tell you how much medicine to take. Do not take more medicine than directed. Call emergency for help if you have problems breathing. The medicine will cause constipation. Try to have a bowel movement at least every 2 to 3 days. If you do not have a bowel movement for 3 days, call your doctor or health home visit field care manager. Too much acetaminophen can be very dangerous. Do not take Tylenol (acetaminophen) or medicines that contain acetaminophen with this medicine. Many non-prescription medicines contain acetaminophen. Always read the labels carefully. Amoxicillin Trihydrate, Clavulanate Potassium Oral tablet What is this medicine? AMOXICILLIN; CLAVULANIC ACID (a mox i LOWELL in; ISA matos ic id) is a penicillin antibiotic. It is used to treat certain kinds of bacterial infections. It will not work for colds, flu, or other viral infections. How should I use this medicine? Take this medicine by mouth with a full glass of water. Follow the directions on the prescription label. Take at the start of a meal. Do not crush or chew. If the tablet has a score line, you may cut it in half at the score line for easier swallowing. Take your medicine at regular intervals. Do not take your medicine more often than directed. Take all of your medicine as directed even if you think you are better. Do not skip doses or stop your medicine early. Talk to your launchman regarding the use of this medicine in children. Special care may be needed. What side effects may I notice from receiving this medicine? Side effects that you should report to your doctor or health home visit field care manager as soon as possible: allergic reactions like skin rash, itching or hives, swelling of the face, lips, or tongue breathing problems dark urine fever or chills, sore throat redness, blistering, peeling or loosening of the skin, including inside the mouth seizures trouble passing urine or change in the amount of urine unusual bleeding, bruising unusually weak or tired white patches or sores in the mouth or throat Side effects that usually do not require medical attention (report to your doctor or health home visit field care manager if they continue or are bothersome): diarrhea dizziness headache nausea, vomiting stomach upset vaginal or anal irritation What may interact with this medicine? allopurinol anticoagulants control pills methotrexate probenecid What if I miss a dose? If you miss a dose, take it as soon as you can. If it is almost time for your next dose, take only that dose. Do not take double or extra doses. Where should I keep my medicine? Keep out of the reach of children. Store at room temperature below 25 degrees C (77 degrees F). Keep container tightly closed. Throw away any unused medicine after the expiration date. What should I tell my health care provider before I take this medicine? They need to know if you have any of these conditions: bowel disease, like colitis kidney disease liver disease mononucleosis an unusual or allergic reaction to amoxicillin, penicillin, cephalosporin, other antibiotics, clavulanic acid, other medicines, foods, dyes, or preservatives or trying to get breast-feeding What should I watch for while using this medicine? Tell your doctor or health home visit field care manager if your symptoms do not improve. Do not treat diarrhea with over the counter products. Contact your doctor if you have diarrhea that lasts more than 2 days or if it is severe and watery. If you have diabetes, you may get a false-positive result for sugar in your urine. Check with your doctor or health home visit field care manager. control pills may not work properly while you are taking this medicine. Talk to your doctor about using an extra method of control. You have been given the following additional information: Paronychia Ingrown Toenail, Excised Ingrown Toenail, Infected (Abx Only) Hydrocodone Bitartrate, Acetaminophen Oral tablet Amoxicillin Trihydrate, Clavulanate Potassium Oral tablet (Electronically signed by Piter Orr Dr. 08/28/2016 9:05)
== END 2016-08-28 02:10 | disposition home or self-care (01) ==
LOC: ED SRH 00:26
DX: L60.0 Ingrowing nail (principal); L03.031 Cellulitis of right toe